=== PATIENT | male | born 2000 | race Caucasian/White ===

== ENCOUNTER 2024-03-14 12:05 | Outpatient (AMB) | payer OTHER, SELFPAY ==
--- NOTE | 2024-03-14 12:07 | MHC.PC.OV ---
Vital Signs 03/14/24 12:14 Height 6 ft 2.8 in Weight 195 lb 8 oz BMI 24.6 BP 126/62 Blood Pressure Location Rt brachial Position Sitting Respiration 14 Pulse 80 Pulse Source Pulse Oximeter Temp 98.4 F Temp Source Oral Pulse Oximetry (%) 98 Oxygen Delivery Method Room Air Intake Visit Reasons: back pain/ CPE Intake Note: New patient visit. Was taking Adderall in school, but is not currently in school. Allergies diphenhydramine [From Benadryl] Allergy (Severe, Verified 03/14/24 12:09) throat closes Penicillins Allergy (Unknown, Verified 03/14/24 12:09) Unknown Tobacco use date assessed: 03/14/24 Dental Screening Dental Screen Date: 03/14/24 Did you have a dental visit in the last 12 months?: No Did you have a dental problem in the last 6 months where you did not have access to dental care?: No Was dental information given to patient?: Patient has dentist HPI HPI Comments History of Present Illness Details This is a 23-year-old male with a past medical history of asthma, allergic rhinitis, anxiety and ADHD presenting to establish care. 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 The patient is scheduled today for back pain. He says this is chronic. It has been going on intermittently for a year so. It has gotten worse over the last few months. He went to the [facility] ED in the summer because he was having severe back pain that radiated down his left leg. They said it might be sciatica. He was given some medications. He is unsure they helped. He lifts weights, but he says that he has good form. He does not believe he has ever injured himself weight lifting. 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 Pain hurts more when he is seated. It also hurts when he tries to stand up after being seated for a while. Pain is there most days. It is described as aching. It is across all of his lower back and sometimes is higher up in his middle back. There is no numbness, tingling, weakness or loss of bowel or bladder control associated with the pain. Tylenol and Advil were ineffective. Naproxen helps but does not get rid of pain. He receives allergy injections at [facility]. They see him for asthma. He takes Symbicort and uses Albuterol as needed. He was seeing a therapist and pyschiastrist through school, but he is not sure when he will return. He may go back next semester. He was diagnosed with ADHD in childhood. Per Fang Call was filling this over the Summer, but now the patient is out of the medication. He was taking 15 mg TID, but he wants to try decreasing the dose. Anxiety is treated with buspirone 5 mg twice daily. Insomnia is treated with mirtazapine 7.5 mg nightly. ROS: Constitutional: No unexplained weight loss, fever, chills, fatigue or night sweats. Neurologic: No headache, dizziness, syncope, unilateral weakness, ataxia, numbness or tingling in the extremities. Musculoskeletal: see HPI Psychiatric: No SI/HI. Physical exam: Constitutional: Alert, in no distress Respiratory: Clear to auscultation. Cardiovascular: S1 S2 regular. No murmurs. Neurologic: No focal neurological deficits. Symmetric patellar reflexes. Moves all extremities spontaneously. Sensation intact bilaterally. Back: No midline tenderness. Mild lower back pain with flexion and extension. The lower thoracic and lumbar paraspinal muscles are mildly tender. Negative straight leg raises bilaterally. Lower extremity strength 5/5 bilaterally. Normal gait. Extremities: Warm and well perfused. No clubbing, cyanosis or edema. 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 How often do you have a drink containing alcohol?: Monthly or less 2. How many drinks containing alcohol do you have on a typical day when you are drinking?: 1 or 2 3. How often do you have six or more drinks on one occasion?: Never Total Score: 1 Physical exam (Primary Care) Vital Signs: Last Vital Signs Temp 98.4 F 03/14/24 12:14 Pulse 80 03/14/24 12:14 Resp 14 03/14/24 12:14 BP 126/62 03/14/24 12:14 Pulse Ox 98 03/14/24 12:14 Oxygen Delivery Method Room Air 03/14/24 12:14 BMI result Body Mass Index 24.6 Tobacco/Smoking Status: Tobacco use Status Tobacco use date assessed 03/14/24 03/14/24 12:19 Patient Tobacco Use Status Never used Tobacco 03/14/24 12:19 e-Cigarette/Vaping Use Never Used 03/14/24 12:19 Assessment and Plan Assessment & Plan (1) ADHD (attention deficit hyperactivity disorder): Code(s): F90.9 - Attention-deficit hyperactivity disorder, unspecified type Qualifiers: Attention deficit-hyperactivity disorder type: unspecified Qualified Code(s): F90.9 - Attention-deficit hyperactivity disorder, unspecified type Plan: Reviewed mass pat. It is appropriate. He can decrease Adderall to 10 mg 3 times daily. Side effects reviewed. I referred him to Psychiatry, but I told him that I do not mind continuing this medication for him and referring back to Psychiatry if adjustments are needed. If he plans to continue receiving the medication from me he will sign a controlled substance contract and have a urine drug screen completed at his next appointment. (2) Back pain: Code(s): M54.9 - Dorsalgia, unspecified Qualifiers: Back pain location: low back pain Chronicity: chronic Back pain laterality: bilateral Sciatica presence: without sciatica Qualified Code(s): M54.50 - Low back pain, unspecified; G89.29 - Other chronic pain Plan: No neurologic red flags. X-rays ordered for further evaluation. We will consider referral to physical therapy based on results. He can take naproxen as needed for pain which has been more effective than Tylenol or Advil. (3) Anxiety: Code(s): F41.9 - Anxiety disorder, unspecified Plan: Stable. Continue buspirone 5 mg twice daily. Referred to therapy. (4) Moderate persistent asthma: Code(s): J45.40 - Moderate persistent asthma, uncomplicated Qualifiers: Asthma complication type: uncomplicated Qualified Code(s): J45.40 - Moderate persistent asthma, uncomplicated Plan: Continue current regimen per asthma specialist. (5) Insomnia: Code(s): G47.00 - Insomnia, unspecified Qualifiers: Insomnia type: primary Qualified Code(s): F51.01 - Primary insomnia Plan: Continue mirtazapine 7.5 mg nightly as needed. Plan Follow up in 8 weeks for a physical exam. Orders: Orders XR thoracic spine 2V Today M54.9 - Dorsalgia, unspecified XR lumbar spine 2-3V Today M54.9 - Dorsalgia, unspecified Referrals Psychiatry Referral F41.9 - Anxiety disorder, unspecified, F90.9 - Attention-deficit hyperactivity disorder, unspecified type Psychology Referral F41.9 - Anxiety disorder, unspecified, F90.9 - Attention-deficit hyperactivity disorder, unspecified type Medications: New mirtazapine 7.5 mg PO BEDTIME 90 tabs 0RF buspirone 5 mg PO BID 180 tabs 0RF dextroamphetamine-amphetamine 10 mg (Adderall) administer doses at least 4-6 hours apart; Partial Fill upon patient request. 10 mg PO TID 30 days 90 tabs 0RF Coding Level of Care Code New Pt Level 4 (41224) Complex EM visit Add On G2211 Diagnoses Attention deficit hyperactivity disorder (ADHD), unspecified ADHD type F90.9 Attention deficit-hyperactivity disorder type: unspecified Chronic bilateral low back pain without sciatica M54.50; G89.29 Back pain location: low back pain Chronicity: chronic Back pain laterality: bilateral Sciatica presence: without sciatica Anxiety F41.9 Moderate persistent asthma without complication J45.40 Asthma complication type: uncomplicated Primary insomnia F51.01 Insomnia type: primary
[2024-03-14 12:14] VITALS: BP 126/62; PULSE 80; RESP 14; TEMP 36.9; O2SAT 98; BMI 24.6
== END 2024-03-14 12:53 | disposition home or self-care (01) ==
PROVIDERS: PCP Physician Assistant Medical; Visit Provider Physician Assistant Medical
DX: F90.9 Attention-deficit hyperactivity disorder, unspecified type (principal); M54.50 Low back pain, unspecified; G89.29 Other chronic pain; F41.9 Anxiety disorder, unspecified; J45.40 Moderate persistent asthma, uncomplicated; F51.01 Primary insomnia

== ENCOUNTER → 2024-03-14 12:05 | Outpatient (BNVA) | payer OTHER, SELFPAY | PROVIDERS: PCP Family Medicine; Visit Provider Physician Assistant Medical | DX: F90.9 Attention-deficit hyperactivity disorder, unspecified type (principal); G89.29 Other chronic pain; M54.50 Low back pain, unspecified; F41.9 Anxiety disorder, unspecified; J45.40 Moderate persistent asthma, uncomplicated; F51.01 Primary insomnia; Z79.899 Other long term (current) drug therapy | CPT/HCPCS: 99202 ==

== ENCOUNTER 2024-03-25 15:53 | Outpatient (REF) | payer OTHER, SELFPAY ==
--- NOTE | ~2024-03-25 | XR_ITS ---
EXAMINATION: XR THORACIC SPINE CLINICAL INFORMATION: M54.9 - Dorsalgia, unspecified COMPARISON: None available. TECHNIQUE: 3 views of the thoracic spine were obtained. FINDINGS: There is no fracture or bone destruction seen and the vertebral alignment is normal. There is no disc space narrowing. There is no abnormality of the paraspinal soft tissues. XR/XR thoracic spine 2V IMPRESSION: Normal exam. Electronically signed by: Nate Birmingham MD 05/20/2024 10:23 AM [facility] [employer]
--- NOTE | ~2024-03-25 | XR_ITS ---
EXAMINATION: XR LUMBOSACRAL SPINE CLINICAL INFORMATION: M54.9 - Dorsalgia, unspecified COMPARISON: None available. TECHNIQUE: Three views of the lumbosacral spine. FINDINGS: Normal bone mineralization. Normal alignment and lordosis. No scoliosis. There has been a left hemilaminotomy L5-S1. No compression deformities. Mild disc space narrowing L5-S1. Disc spaces are otherwise well-preserved. Minimal degenerative facet changes L5-S1. No additional bony or soft tissue abnormalities. XR/XR lumbar spine 2-3V IMPRESSION: 1. No acute findings lumbar spine. 2. Early degenerative disc and facet changes L5-S1. 3. Apparent left hemilaminotomy L5-S1. Electronically signed by: Nate Birmingham MD 05/20/2024 10:31 AM [facility]
== END 2024-03-25 15:54 | disposition home or self-care (01) ==
LOC: HO.XRAY 15:53
PROVIDERS: PCP Physician Assistant Medical; Visit Provider Physician Assistant Medical
DX: M54.9 Dorsalgia, unspecified (principal)
CPT/HCPCS: 72070; 72100

== ENCOUNTER → 2024-03-25 15:57 | Outpatient (BNV) | payer OTHER, SELFPAY | PROVIDERS: PCP Physician Assistant Medical; Visit Provider Radiology Diagnostic Radiology | DX: M54.9 Dorsalgia, unspecified (principal) | CPT/HCPCS: 72070; 72100 ==

== ENCOUNTER 2024-05-16 16:25 | Outpatient (AMB) | payer OTHER, SELFPAY ==
--- NOTE | 2024-05-16 16:28 | A.OFFPC_ITS ---
Vital Signs 05/16/24 16:30 Height 6 ft 2.8 in Weight 197 lb 8 oz BMI 24.8 BP 124/62 Blood Pressure Location Rt brachial Position Sitting Pulse 85 Pulse Source Pulse Oximeter Pulse Oximetry (%) 99 Oxygen Delivery Method Room Air Intake Visit Reasons: annual physical Intake Note: Physical Block Trader Required: No Allergies diphenhydramine [From Benadryl] Allergy (Severe, Verified 05/16/24 16:30) throat closes Penicillins Allergy (Unknown, Verified 05/16/24 16:30) Unknown Tobacco use date assessed: 03/14/24 Dental Screening Dental Screen Date: 03/14/24 HPI HPI Comments History of Present Illness Details This is a 23-year-old male with a past medical history of asthma, allergic rhinitis, anxiety and ADHD presenting for follow up. His x-rays have not been read yet for back pain evaluation. He went to the [facility] ED in the summer because he was having severe back pain that radiated down his left leg. They said it might be sciatica. He was given some medications. He is unsure they helped. He lifts weights, but he says that he has good form. He does not believe he has ever injured himself weight lifting. 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 Pain hurts more when he is seated. It also hurts when he tries to stand up after being seated for a while. Pain is there most days. It is described as aching. It is across all of his lower back and sometimes is higher up in his middle back. There is no numbness, tingling, weakness or loss of bowel or bladder control associated with the pain. Tylenol and Advil were ineffective. Naproxen helps but does not get rid of pain. He receives allergy injections at [facility]. They see him for asthma. He takes Symbicort and uses Albuterol as needed. He was seeing a therapist and pyschiastrist through school, but he is not sure when he will return. He may go back next semester. He was diagnosed with ADHD in childhood. He decreased his dose of Adderall successfully to 10 mg 3 times daily. CSC sign today. He will have UDS done with lab work. He feels like mirtazapine does not always help him to fall asleep. Once asleep he is able to stay asleep. He tried trazodone in the past which caused side effects. Hydroxyzine was ineffective. He will increase his dose of mirtazapine to 15 mg and monitor for increased sedation and drowsiness and will not drive or operate heavy machinery if he has the side effects. Anxiety is treated with buspirone 5 mg twice daily. Patient's parents are within the past year. Patient says he is doing okay about this. Declines influenza vaccine. Tdap due and administered today. Declines screenings for STIs-declines that he is sexually active. ROS: Constitutional: No unexplained weight loss, fever, chills, fatigue or night sweats. Eyes: No vision changes, blurry vision, double vision, eye pain, eye redness, eye discharge. ENT: No hearing loss, sneezing, congestion, runny nose or sore throat. Respiratory: No shortness of breath, cough or sputum production. Cardiovascular: No chest pain, chest pressure or chest discomfort. No palpitations or pedal edema. Gastrointestinal: No anorexia, nausea, vomiting or diarrhea. No abdominal pain or blood in stool. Genitourinary: No dysuria, hematuria, urinary frequency. No testicular masses, swelling in the groin, no pain, no urethral discharge. Neurologic: No headache, dizziness, syncope, unilateral weakness, ataxia, numbness or tingling in the extremities. Musculoskeletal: see HPI Hematologic/Lymphatics: No bleeding or bruising. No painful lymph nodes. Skin: No rash or itching. Endocrine: No cold or heat intolerance. No polyuria or polydipsia. Psychiatric:No SI/HI. Physical exam: Constitutional: Alert, in no distress. Head: Normocephalic. Eyes: Pupils are equal, round and reactive to light. Extraocular muscles intact. Ear, Nose and Throat: Canals clear. TMs normal. Normal nasal mucosa. No nasal discharge. No oral lesions. Neck: Supple, Full range of motion. No lymphadenopathy. No palpable thyroid masses. Respiratory: Clear to auscultation. Cardiovascular: S1 S2 regular. No murmurs. Gastrointestinal: Abdomen soft, non-tender, non-distended. Normal bowel sounds. No palpable masses. Genitourinary: Deferred exam. Neurologic: No focal neurological deficits. Symmetric patellar reflexes. Moves all extremities spontaneously. Sensation intact bilaterally. Skin: No rashes or lesions. Musculoskeletal: No gross deformities. Extremities: Warm and well perfused. No clubbing, cyanosis or edema. 3+ peripheral pulses bilaterally. 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 1. Little interest or pleasure in doing things: several days 2. Feeling down, depressed, or hopeless: not at all 3. Trouble falling or staying asleep, or sleeping too much: nearly every day 4. Feeling tired or having little energy: several days 5. Poor appetite or overeating: not at all 6. Feeling bad about yourself - or that you are a failure or have let yourself or your family down: not at all 7. Trouble concentrating on things, such as reading the newspaper or watching television: not at all 8. Moving or speaking so slowly that other people could have noticed. Or the opposite - being so fidgety or restless that you have been moving around a lot more than usual: several days 9. Thoughts that you would be better off or of hurting yourself in some way: not at all Total score: 6 Depression Screening Interpretation: Positive Depression Screening Done: Yes Source: Developed by Drs. Daniel Olea, No Benoit, Blu Madden and colleagues, with an educational rachel from [employer]. Thrive Questionnaire I am a: Patient What is your living situation today?: I have a steady place to live Within the past 12 months, did the food you bought not last and you didn't have the money to get more?: Never true Within the past 12 months, did you worry whether your food would run out before you got money to buy more?: Never true Do you have trouble paying for medicines?: No Do you have trouble getting transportation to medical appointments?: No Do you have trouble paying your heating and electricity bill?: No Do you have trouble taking care of your child, family member or friend?: No Do you have trouble with day-to-day activities such as bathing, preparing meals, shopping, managing finances, etc.?: No Are you currently unemployed and looking for a job?: No Are you interested in more education?: No Please select the resources that you would like help with: None Currently or been in a relationship where the following occur: No concerns reported THRIVE Score: 0 AUDIT C Alcohol Use Questionnaire (AUDIT-C) 1. How often do you have a drink containing alcohol?: Monthly or less 2. How many drinks containing alcohol do you have on a typical day when you are drinking?: 1 or 2 3. How often do you have six or more drinks on one occasion?: Never Total Score: 1 MARIPOSA-7 AMB Questionnaire MARIPOSA-7 Feeling nervous, anxious, or on edge: 1 = Several days Not being able to stop or control worryin = Not at all Worrying too much about different things: 1 = Several days Trouble relaxin = Not at all Being so restless that it is hard to sit still: 0 = Not at all Becoming easily annoyed or irritable: 1 = Several days Feeling afraid as if something awful might happen: 0 = Not at all Total MARIPOSA-7 score (0-4 normal; 5-9 mild; 10-14 moderate; 15-21 severe): 3 Source: Developed by Drs. Daniel Olea, No Benoit, Blu Madden and colleagues, with an educational rachel from [employer]. Physical exam (Primary Care) Vital Signs: Last Vital Signs Pulse 85 05/16/24 16:30 BP 124/62 05/16/24 16:30 Pulse Ox 99 05/16/24 16:30 Oxygen Delivery Method Room Air 05/16/24 16:30 BMI result Body Mass Index 24.8 Tobacco/Smoking Status: Tobacco use Status Tobacco use date assessed 03/14/24 05/16/24 16:29 Patient Tobacco Use Status Never used Tobacco 05/16/24 16:29 e-Cigarette/Vaping Use Never Used 05/16/24 16:29 PHQ-9: PHQ-9 Score PHQ-9: Total score 6 05/16/24 17:01 Depression Screening Interpretation: Positive Currently or been in a relationship where the following occur: No concerns reported Immunizations Boostrix Tdap 2.5 Lf unit-8 mcg-5 Lf/0.5 mL intramuscular syringe Performing Provider: SURJIT Chavez Performing Location: [facility] Administered by: Gaye Raymundo RN on 05/16/24 17:01 Dose Route Admin Location Dispensed Lot Number Expiration Date [facility] Due Diligence Coordinator 0.5 mL IM Left Deltoid 0.5 mL [id number] 07/06/26 [id number] [employer] VIS Given Date VIS Provided VIS Publication Date 05/16/24 Single Vaccine 21 Eligibility Eligibility Date Funding Source Not [facility] Eligible 05/16/24 Private Coding Level of Care Code Est Pt Prev Care 18-39y(99209) Diagnoses Routine physical examination Z00.00 Assessment & Plan Assessment & Plan (1) Routine physical examination: Code(s): Z00.00 - Encounter for general adult medical examination without abnormal findings Category: Medical Plan Patient is seen today for a routine physical. As part of this visit we reviewed the following issues, which are considered and essential part of preventative h ealth in this age group: - Testicular cancer screening, which includes self exam teaching - Blood pressure screening - Cholesterol screening - Nutritional and exercise counseling - Counseling of injury prevention including fire prevention, smoke alarms and seat belt usage - Screening for depression - Prevention of and/or testing for infectious diseases - Education about skin cancer - Recommendations about immunizations - Recommendation of an eye exam - Screening for substance abuse - Genetic cancer risk screening Follow up in 6 months for a medication review. Orders: Orders TDaP Immunization Today Z23 - Encounter for immunization Complete Blood Count no Diff Today F90.9 - Attention-deficit hyperactivity disorder, unspecified type, Z00.00 - Encounter for general adult medical examination without abnormal findings, Z13.6 - Encounter for screening for ca rdiovascular disorders, Z51.81 - Encounter for therapeutic drug level monitoring Comprehensive Met. Panel Today F90.9 - Attention-deficit hyperactivity disorder, unspecified type, Z00.00 - Encounter for general adult medical examination without abnormal findings, Z13.6 - Encounter for screening for cardiovascular disorders, Z51.81 - Encounter for therapeutic drug level m onitoring Lipid Panel Today F90.9 - Attention-deficit hyperactivity disorder, unspecified type, Z00.00 - Encounter for general adult medical examination without abnormal findings, Z13.6 - Encounter for screening for cardiovascular disorders, Z51.81 - Encounter for therapeutic drug level monitoring Drug Screen Urine Today F90.9 - Attention-deficit hyperactivity disorder, unspecified type, Z00.00 - Encounter for general adult medical examination without abnormal findings, Z13.6 - Encounter for screening for cardiovascular disorders, Z51.81 - Encounter for therapeutic drug level monitoring Medications: Changed From albuterol sulfate 90 mcg/actuation inhalation To albuterol sulfate 90 mcg/actuation 2 puffs inhalation Q4-6H 8.5 grams 3RF From budesonide-formoterol 160-4.5 mcg/actuation (Symbicort) inhalation To budesonide-formoterol 160-4.5 mcg/actuation (Symbicort) 1 puff inhalation BID 10.2 grams 11RF Refilled dextroamphetamine-amphetamine 10 mg (Adderall) administer doses at least 4-6 hours apart; Partial Fill upon patient request. 10 mg PO TID 30 days 90 tabs 0RF
[2024-05-16 16:30] VITALS: BP 124/62; PULSE 85; O2SAT 99; BMI 24.8
== END 2024-05-16 17:01 | disposition home or self-care (01) ==
PROVIDERS: PCP Physician Assistant Medical; Visit Provider Physician Assistant Medical
DX: Z23 Encounter for immunization (principal); Z00.00 Encounter for general adult medical examination without abnormal findings

== ENCOUNTER → 2024-05-16 16:25 | Outpatient (BNVA) | payer OTHER, SELFPAY | PROVIDERS: PCP Physician Assistant Medical; Visit Provider Physician Assistant Medical | DX: Z00.00 Encounter for general adult medical examination without abnormal findings (principal); Z23 Encounter for immunization; F90.9 Attention-deficit hyperactivity disorder, unspecified type; Z79.899 Other long term (current) drug therapy | CPT/HCPCS: 90471; 90715; 96127; 99395 ==

== ENCOUNTER 2024-11-14 11:53 | Outpatient (AMB) | payer OTHER, SELFPAY ==
--- NOTE | 2024-11-14 12:03 | MHC.PC.OV ---
Vital Signs 11/14/24 12:08 Height 6 ft 3 in Weight 195 lb 4 oz BMI 24.4 BP 112/78 Blood Pressure Location Lt brachial Position Sitting Pulse 80 Pulse Source Pulse Oximeter Temp 97.9 F Temp Source Temporal Artery Scan Pulse Oximetry (%) 96 Intake Visit Reasons: med review Intake Note: Fred presents in the office for a medication review. Allergies diphenhydramine [From Benadryl] Allergy (Severe, Verified 11/14/24 12:06) throat closes Penicillins Allergy (Unknown, Verified 11/14/24 12:06) Unknown Tobacco use date assessed: 11/14/24 Dental Screening Dental Screen Date: 11/14/24 Did you have a dental visit in the last 12 months?: No Did you have a dental problem in the last 6 months where you did not have access to dental care?: No Was dental information given to patient?: Patient declined HPI HPI Comments History of Present Illness Details This is a 23-year-old male with a past medical history of asthma, allergic rhinitis, insomnia, anxiety and ADHD presenting for ADHD medication check. He receives allergy injections at [facility]. They see him for asthma. He takes Symbicort and uses Albuterol as needed. No interval ER visits, illnesses or hospitalizations. He was seeing a therapist and pyschiastrist through school previously, but he did not return to school. He was diagnosed with ADHD in childhood. He is taking Adderall 10 mg 3 times daily. He has a controlled substance agreement. He will have UDS done with lab work. Reminded patient today. He works till midnight. He takes mirtazapine for sleep and gets 7-8 hours of sleep. He usually goes to bed at 02:00. Weight is stable. Buspirone is controlling anxiety. Denies side effects. ROS: Constitutional: No unexplained weight loss, fever, chills, fatigue or night sweats. Respiratory: No shortness of breath, cough or sputum production. Cardiovascular: No chest pain, chest pressure or chest discomfort. No palpitations or pedal edema. Neurologic: No headache, dizziness, syncope Psychiatric:No SI/HI. Physical exam: Constitutional: Alert, in no distress. Head: Normocephalic. Respiratory: Clear to auscultation. Cardiovascular: S1 S2 regular. No murmurs. 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 1. Little interest or pleasure in doing things: not at all 2. Feeling down, depressed, or hopeless: several days 3. Trouble falling or staying asleep, or sleeping too much: several days 4. Feeling tired or having little energy: not at all 5. Poor appetite or overeating: not at all 6. Feeling bad about yourself - or that you are a failure or have let yourself or your family down: not at all 7. Trouble concentrating on things, such as reading the newspaper or watching television: not at all 8. Moving or speaking so slowly that other people could have noticed. Or the opposite - being so fidgety or restless that you have been moving around a lot more than usual: not at all 9. Thoughts that you would be better off or of hurting yourself in some way: not at all Total score: 2 Depression Screening Interpretation: Negative Depression Screening Done: Yes Source: Developed by Drs. Daniel Olea, No Benoit, Blu Madden and colleagues, with an educational rachel from [employer]. Thrive Questionnaire Date Thrive assessed: 05/16/24 I am a: Patient What is your living situation today?: I have a steady place to live Within the past 12 months, did the food you bought not last and you didn't have the money to get more?: Never true Within the past 12 months, did you worry whether your food would run out before you got money to buy more?: Never true Do you have trouble paying for medicines?: No Do you have trouble getting transportation to medical appointments?: No Do you have trouble paying your heating and electricity bill?: No Do you have trouble taking care of your child, family member or friend?: No Do you have trouble with day-to-day activities such as bathing, preparing meals, shopping, managing finances, etc.?: No Are you currently unemployed and looking for a job?: No Are you interested in more education?: No Please select the resources that you would like help with: None Currently or been in a relationship where the following occur: No concerns reported THRIVE Score: 0 AUDIT C Alcohol Use Questionnaire (AUDIT-C) 1. How often do you have a drink containing alcohol?: Monthly or less 2. How many drinks containing alcohol do you have on a typical day when you are drinking?: 1 or 2 3. How often do you have six or more drinks on one occasion?: Never Total Score: 1 MARIPOSA-7 AMB Questionnaire MARIPOSA-7 Feeling nervous, anxious, or on edge: 0 = Not at all Not being able to stop or control worryin = Not at all Worrying too much about different things: 1 = Several days Trouble relaxin = Not at all Being so restless that it is hard to sit still: 1 = Several days Becoming easily annoyed or irritable: 1 = Several days Feeling afraid as if something awful might happen: 0 = Not at all Total MARIPOSA-7 score (0-4 normal; 5-9 mild; 10-14 moderate; 15-21 severe): 3 Source: Developed by Drs. Daniel Olea, No Benoit, Blu Madden and colleagues, with an educational rachel from [employer]. Physical exam (Primary Care) Vital Signs: Last Vital Signs Temp 97.9 F 11/14/24 12:08 Pulse 80 11/14/24 12:08 BP 112/78 11/14/24 12:08 Pulse Ox 96 11/14/24 12:08 BMI result Body Mass Index 24.4 Tobacco/Smoking Status: Tobacco use Status Tobacco use date assessed 03/14/24 11/14/24 12:04 Patient Tobacco Use Status Never used Tobacco 11/14/24 12:08 e-Cigarette/Vaping Use Never Used 11/14/24 12:08 PHQ-9: PHQ-9 Score PHQ-9: Total score 2 11/14/24 12:04 Depression Screening Interpretation: Negative Thrive Assessment: Date of Thrive Assessment Date Thrive assessed 05/16/24 11/14/24 12:04 Currently or been in a relationship where the following occur: No concerns reported Coding Level of Care Code Est Pt Level 4 (68975) Complex EM visit Add On G2211 Diagnoses Moderate persistent asthma without complication J45.40 Asthma complication type: uncomplicated Attention deficit hyperactivity disorder (ADHD), unspecified ADHD type F90.9 Attention deficit-hyperactivity disorder type: unspecified Anxiety F41.9 Primary insomnia F51.01 Insomnia type: primary Assessment & Plan Assessment & Plan (1) Moderate persistent asthma: Code(s): J45.40 - Moderate persistent asthma, uncomplicated Category: Medical Qualifiers: Asthma complication type: uncomplicated Qualified Code(s): J45.40 - Moderate persistent asthma, uncomplicated Plan: Stable. Continue current regimen. Followed by Allergy and immunology. (2) ADHD (attention deficit hyperactivity disorder): Code(s): F90.9 - Attention-deficit hyperactivity disorder, unspecified type Category: Medical Qualifiers: Attention deficit-hyperactivity disorder type: unspecified Qualified Code(s): F90.9 - Attention-deficit hyperactivity disorder, unspecified type Plan: Stable on current medication. CSA on file. Reminded to have labs done including UDS. Continue Adderall 10 mg 3 times daily. (3) Anxiety: Code(s): F41.9 - Anxiety disorder, unspecified Category: Medical Plan: Stable on buspirone 5 mg twice daily. (4) Insomnia: Code(s): G47.00 - Insomnia, unspecified Category: Medical Qualifiers: Insomnia type: primary Qualified Code(s): F51.01 - Primary insomnia Plan Stable. Sleep hygiene reviewed. Continue mirtazapine 15 mg at bedtime.
[2024-11-14 12:08] VITALS: BP 112/78; PULSE 80; TEMP 36.6; O2SAT 96; BMI 24.4
--- OUTSIDE RECORDS SUMMARY | 2024-11-14 13:06 | XMS_ITS | Encounter Summary ---
Author Organization [facility] Address [address] [place], [place] [id number] Phone Care Team Providers Care Preschool Assistant Name Role Phone Marivel Amaya MD Primary Care Provider [phone] Encounter Details Date Type Department Care Team (Late st Contact Info) Description 11/01/2017 Conversion [facility]counter [facility] [address] [address] [place] Alford MD [address] [place] [address] Social History Tobacco Use Types Packs/Day Years Used Date Smoking Tobacco: Never Assessed Sex and Gender Information Value Date Recorded Sex Assigned at Male 03/29/2021 3:05 PM EDT Legal Sex Male 6:18 PM EDT Gender Identity Male 03/29/2021 3:05 PM EDT Sexual Orientation Bisexual 03/29/2021 3: 05 PM EDT documented as of this encounter Plan of Treatment Not on file documented as of this encounter Visit Diagnoses Not on filedocumented in this encounter Care Teams Preschool Assistant Relationship Specialty Start Date End Date Marivel Amaya MD [address] [place] [address] PCP - General Pediatrics 10/15/22 07/25/24 documented as of this encounter
== END 2024-11-14 12:18 | disposition home or self-care (01) ==
PROVIDERS: PCP Physician Assistant Medical; Visit Provider Physician Assistant Medical
DX: J45.40 Moderate persistent asthma, uncomplicated (principal); F90.9 Attention-deficit hyperactivity disorder, unspecified type; F41.9 Anxiety disorder, unspecified; F51.01 Primary insomnia

== ENCOUNTER → 2024-11-14 11:53 | Outpatient (BNVA) | payer SELFPAY | PROVIDERS: PCP Physician Assistant Medical; Visit Provider Physician Assistant Medical | DX: J45.40 Moderate persistent asthma, uncomplicated (principal); F51.01 Primary insomnia; F90.9 Attention-deficit hyperactivity disorder, unspecified type; F41.9 Anxiety disorder, unspecified; Z79.899 Other long term (current) drug therapy; Z13.31 Encounter for screening for depression | CPT/HCPCS: 96127; 99212 ==

== ENCOUNTER 2025-05-22 16:21 | Outpatient (AMB) | payer OTHER, SELFPAY ==
--- NOTE | 2025-05-22 16:24 | A.OFFPC_ITS ---
Vital Signs 05/22/25 16:29 Height 6 ft 3 in Weight 195 lb BMI 24.4 BP 114/78 Blood Pressure Location Rt brachial Position Sitting Respiration 15 Pulse 89 Pulse Source Pulse Oximeter Temp 98 F Temp Source Temporal Artery Scan Pulse Oximetry (%) 97 Oxygen Delivery Method Room Air Intake Visit Reasons: annual physical exam Intake Note: Patient presents in the office today to establish care. Automatic Fancy Machine Operator Required: No Allergies diphenhydramine (From Benadryl) Allergy (Severe, Verified 05/22/25 16:28) throat closes Penicillins Allergy (Unknown, Verified 05/22/25 16:28) Unknown Tobacco use date assessed: 05/22/25 Dental Screening Dental Screen Date: 05/22/25 Did you have a dental visit in the last 12 months?: No Did you have a dental problem in the last 6 months where you did not have access to dental care?: No Was dental information given to patient?: Patient has dentist HPI HPI Comments History of Present Illness Details This is a 23-year-old male with a past medical history of asthma, allergic rhinitis, insomnia, anxiety and ADHD presenting for a physical exam. Endorses a mild sore throat x1 day. It was worse this morning. He was exposed to strep throat within the past week. Denies fevers or chills. He has mild nasal congestion. He receives allergy injections at [facility]. They see him for asthma. He takes Symbicort and uses Albuterol as needed. No interval ER visits, illnesses or hospitalizations. He was seeing a therapist and pyschiastrist through school previously, but he did not return to school. He was diagnosed with ADHD in childhood. He is taking Adderall 10 mg 3 times daily. He has a controlled substance agreement. He takes mirtazapine for sleep. He is also on buspirone 5 mg twice daily for anxiety. He would like to decrease Adderall to 5 mg 3 times a day. He has been cutting his pills in half. ROS: Constitutional: No unexplained weight loss, fever, chills, fatigue or night sweats. Eyes: No vision changes, blurry vision, double vision, eye pain, eye redness, eye discharge. ENT: No ear pain, sinus pain, see HPI Respiratory: No shortness of breath, cough or sputum production. Cardiovascular: No chest pain, chest pressure or chest discomfort. No palpitations or pedal edema. Gastrointestinal: No anorexia, nausea, vomiting or diarrhea. No abdominal pain or blood in stool. Genitourinary: No dysuria, hematuria, urinary frequency. Denies testicular masses, groin swelling or pain. Neurologic: No headache, dizziness, syncope, unilateral weakness, ataxia, numbness or tingling in the extremities. Musculoskeletal: No joint swelling or muscle aches Hematologic/Lymphatics: No bleeding or bruising. No painful lymph nodes. Skin: No rash Endocrine: No cold or heat intolerance. No polyuria or polydipsia. Psychiatric: See HPI Physical exam: Constitutional: Alert, in no distress. Eyes: Pupils are equal, round and reactive to light. Extraocular muscles intact. Ear, Nose and Throat: Canals clear. TMs normal. Normal nasal mucosa. No nasal discharge. No tonsillar hypertrophy, exudates or erythema. Mild cobblestoning. Neck: Supple, Full range of motion. No lymphadenopathy. No palpable thyroid masses. Respiratory: Clear to auscultation. Cardiovascular: S1 S2 regular. No murmurs. Gastrointestinal: Abdomen soft, non-tender, non-distended. Normal bowel sounds. No palpable masses. Genitourinary: Patient deferred. Neurologic: No focal neurological deficits. Symmetric patellar reflexes. Moves all extremities spontaneously. Sensation intact bilaterally. Skin: No rashes Musculoskeletal: No gross deformities. Normal range of motion. Extremities: Warm and well perfused. No clubbing, cyanosis or edema. Psychiatric: Normal mood and affect [facility] Medical History (Updated 05/22/25 @ 16:46 by SURJIT Chavez) Screening for cardiovascular condition Sore throat Insomnia Moderate persistent asthma Allergic rhinitis Back pain ADHD (attention deficit hyperactivity disorder) Anxiety Routine physical examination Social History (Updated 05/22/25 @ 16:29 by Yolande Mauricio CMA) Housing: House Housing Other:: Duplex Alcohol intake: current Patient Tobacco Use Status: Never used Tobacco e-Cigarette/Vaping Use: Never Used Second Hand Smoke Exposure: No service: No Current occupational status: employed 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 1. Little interest or pleasure in doing things: several days 2. Feeling down, depressed, or hopeless: not at all 3. Trouble falling or staying asleep, or sleeping too much: not at all 4. Feeling tired or having little energy: not at all 5. Poor appetite or overeating: several days 6. Feeling bad about yourself - or that you are a failure or have let yourself or your family down: several days 7. Trouble concentrating on things, such as reading the newspaper or watching television: several days 8. Moving or speaking so slowly that other people could have noticed. Or the opposite - being so fidgety or restless that you have been moving around a lot more than usual: not at all 9. Thoughts that you would be better off or of hurting yourself in some way: not at all Total score: 4 Depression Screening Interpretation: Positive Depression Screening Follow-up: Existing condition and In treatment Depression Screening Done: Yes Source: Developed by Drs. Daniel Olea, No Benoit, Blu Madden and colleagues, with an educational rachel from [email or web address]. Thrive Questionnaire Date Thrive assessed: 05/22/25 I am a: Patient What is your living situation today?: I have a steady place to live Within the past 12 months, did the food you bought not last and you didn't have the money to get more?: Never true Within the past 12 months, did you worry whether your food would run out before you got money to buy more?: Never true Do you have trouble paying for medicines?: No Do you have trouble getting transportation to medical appointments?: No Do you have trouble paying your heating and electricity bill?: No Do you have trouble taking care of your child, family member or friend?: No Do you have trouble with day-to-day activities such as bathing, preparing meals, shopping, managing finances, etc.?: No Are you currently unemployed and looking for a job?: No Are you interested in more education?: No Please select the resources that you would like help with: None Currently or been in a relationship where the following occur: No concerns reported THRIVE Score: 0 AUDIT C Alcohol Use Questionnaire (AUDIT-C) 1. How often do you have a drink containing alcohol?: Monthly or less 2. How many drinks containing alcohol do you have on a typical day when you are drinking?: 1 or 2 3. How often do you have six or more drinks on one occasion?: Never Total Score: 1 MARIPOSA-7 AMB Questionnaire MARIPOSA-7 Date MARIPOSA - 7 assessed: 05/22/25 Feeling nervous, anxious, or on edge: 1 = Several days Not being able to stop or control worryin = Not at all Worrying too much about different things: 1 = Several days Trouble relaxin = Not at all Being so restless that it is hard to sit still: 0 = Not at all Becoming easily annoyed or irritable: 0 = Not at all Feeling afraid as if something awful might happen: 0 = Not at all Total MARIPOSA-7 score (0-4 normal; 5-9 mild; 10-14 moderate; 15-21 severe): 2 Source: Developed by Drs. Daniel Olea, No Benoit, Blu Madden and colleagues, with an educational rachel from [email or web address]. MARIPOSA-7 Assessment Billing MARIPOSA-7 Assessment Tool: MARIPOSA-7 Assessment 95252 Physical exam (Primary Care) Vital Signs: Last Vital Signs Temp 98 F 05/22/25 16:29 Pulse 89 05/22/25 16:29 Resp 15 05/22/25 16:29 BP 114/78 05/22/25 16:29 Pulse Ox 97 05/22/25 16:29 Oxygen Delivery Method Room Air 05/22/25 16:29 BMI result Body Mass Index 24.4 Tobacco/Smoking Status: Tobacco use Status Tobacco use date assessed 05/22/25 05/22/25 16:32 Patient Tobacco Use Status Never used Tobacco 05/22/25 16:29 e-Cigarette/Vaping Use Never Used 05/22/25 16:29 PHQ-9: PHQ-9 Score PHQ-9: Total score 3 05/22/25 17:02 Depression Screening Interpretation: Positive Depression Screening Follow-up: Existing condition and In treatment Thrive Assessment: Date of Thrive Assessment Date Thrive assessed 05/22/25 05/22/25 16:47 Currently or been in a relationship where the following occur: No concerns reported Results AMB Rapid Strep AMB Rapid Strep Negative Last Edit by Yolande Mauricio CMA on 05/22/25 16:54 Results Reviewed Results Reviewed: Laboratory Last Values Strep Scn Rapid Clinic Negative 05/22/25 16:52 Coding Level of Care Code Est Pt Prev Care 18-39y(76609) Complex visit Add On G2211 Diagnoses Routine physical examination Z00.00 Sore throat J02.9 Additional Codes MARIPOSA-7 Assessment Billing - MARIPOSA-7 Assessment Tool: MARIPOSA-7 Assessment 51412 ([id number]) Assessment & Plan Assessment & Plan (1) Routine physical examination: Code(s): Z00.00 - Encounter for general adult medical examination without abnormal findings Category: Medical Plan: Patient is seen today for a routine physical. As part of this visit we reviewed the following issues, which are considered and essential part of preventative health in this age group: - Blood pressure screening - Cholesterol screening - Nutritional and exercise counseling - Counseling of injury prevention including fire prevention, smoke alarms and seat belt usage - Screening for depression - Prevention of and/or testing for infectious diseases-agreeable to testing including HIV screening - Education about skin cancer - Recommendations about immunizations - Recommendation of an eye exam - Screening for substance abuse (2) Sore throat: Code(s): J02.9 - Acute pharyngitis, unspecified Category: Medical Plan: Rapid strep negative. Throat culture sent to lab. Possible viral or allergy mediated symptoms. Supportive care reviewed. Follow up for worsening symptoms. Plan Follow up in 6 months for a med review. Orders: Orders AMB Rapid Strep Screen 05/22/25 J02.9 - Acute pharyngitis, unspecified, Z13.9 - Encounter for screening, unspecified Throat Culture 05/22/25 J02.9 - Acute pharyngitis, unspecified Comprehensive Met. Panel 05/22/25 F51.01 - Primary insomnia, J45.40 - Moderate persistent asthma, uncomplicated, Z00.00 - Encounter for general adult medical examination without abnormal findings, Z13.6 - Encounter for screening for cardiovascular disorders Lipid Panel 05/22/25 F51.01 - Primary insomnia, J45.40 - Moderate persistent asthma, uncomplicated, Z00.00 - Encounter for general adult medical examination without abnormal findings, Z13.6 - Encounter for screening for cardiovascular disorders Complete Blood Count no Diff 05/22/25 F51.01 - Primary insomnia, J45.40 - Moderate persistent asthma, uncomplicated, Z00.00 - Encounter for general adult medical examination without abnormal findings, Z13.6 - Encounter for screening for cardiovascular disorders CT NG by PCR Urine 12/25 F51.01 - Primary insomnia, J45.40 - Moderate persistent asthma, uncomplicated, Z00.00 - Encounter for general adult medical examination without abnormal findings, Z13.6 - Encounter for screening for card iovascular disorders, Z20.2 - Contact with and (suspected) exposure to infections with a predominantly sexual mode of transmission Hepatitis C Antibody 05/22/25 F51.01 - Primary insomnia, J45.40 - Moderate persistent asthma, uncomplicated, Z00.00 - Encounter for general adult medical examination without abnormal findings, Z13.6 - Encounter for screening for cardiovascular disorders, Z20.2 - Contact with and (suspected) exposure to infections with a predominantly sexual mode of transmission HIV Ab/Ag 05/22/25 F51.01 - Primary insomnia, J45.40 - Moderate persistent asthma, uncomplicated, Z00.00 - Encounter for general adult medical examination without abnormal findings, Z13.6 - Encounter for screening for cardiovascular disorders, Z20.2 - Contact with and (suspected) exposure to infections with a predominantly sexual mode of transmission Syphilis Screen 05/22/25 F51.01 - Primary insomnia, J45.40 - Moderate p ersistent asthma, uncomplicated, Z00.00 - Encounter for general adult medical examination without abnormal findings, Z13.6 - Encounter for screening for cardiovascular disorders, Z20.2 - Contact with and (suspected) exposure to infections with a predominantly sexual mode of transmission Medications: Refilled budesonide-formoterol 160-4.5 mcg/actuation (Symbicort) 2 puffs inhalation BID 10.2 grams 11RF Discontinued dextroamphetamine-amphetamine 10 mg (Adderall) Discontinued Reason: Doctor's Order 10 mg PO TID 30 days 90 tabs 0RF
[2025-05-22 16:29] VITALS: BP 114/78; PULSE 89; RESP 15; TEMP 36.6; O2SAT 97; BMI 24.4
--- OUTSIDE RECORDS SUMMARY | 2025-05-23 01:51 | XMS_ITS | Encounter Summary ---
Author Organization [facility] Address [address] [place] [phone] Phone Care Team Providers Care Returned Goods Sorter Name Role Phone Marivel Amaya MD Primary Care Provider [phone] Encounter Details Date Type Department Care Team (Late st Contact Info) Description 07/31/2009 [place]ation [facility] [place] [address] [place] [address] Family Medicine, Physician [address] [place] [id number] Social History Tobacco Use Types Packs/Day Years [...] on filedocumented in this encounter Care Teams Returned Goods Sorter Relationship Specialty Start Date End Date Marivel Amaya MD [address] [place] [address] PCP - General Pediatrics 10/15/22 07/25/24 documented as of this encounter
--- OUTSIDE RECORDS SUMMARY | 2025-05-23 01:51 | XMS_ITS | Encounter Summary ---
Author Organization [facility] Address [address] [place] [phone] Phone Care Team Providers Care Signal Apprentice Name Role Phone Marivel Amaya MD Primary Care Provider [phone] Encounter Details Date Type Department Care Team (Late st Contact Info) Description 08/02/2009 Document[place] [facility] [place] [address] [place] [address] Family Medicine, Physician [address] [phone] Social History Tobacco Use Types Packs/Day Years [...] on filedocumented in this encounter Care Teams Signal Apprentice Relationship Specialty Start Date End Date Marivel Amaya MD [address] [place] [address] PCP - General Pediatrics 10/15/22 07/25/24 documented as of this encounter
--- OUTSIDE RECORDS SUMMARY | 2025-05-23 01:51 | XMS_ITS | Clinical Summary ---
Author Organization [facility] Address [address] [place] [address] Phone Care Team Providers Care Fur Cutter Name Role Phone Unavailable Primary Care Provider Unavailabl e Allergies Active Allergy Reactions Criticality Noted Date Comments Diphenhydramine Itching 03/10/2022 Throat Environmental Penicillin G Ceftriaxone Medications cetirizine 10 MG tablet Take 10 mg by mouth daily. Active Sodium Fluoride 5000 PPM 1.1 % paste APPLY PEA SIZED AMOUNT TO TOOTHBRUSH AND BRUSH TEETH AT NIGHT WITH TOOTHPASTE 2 Active albuterol HFA 108 (90 Base) MCG/ACT inhalerIndication s:Mild intermittent asthma without complication Inhale 2 puffs every 4 (four) hours as needed for wheezing or shortness of breath (also prior to vigorous exercise prn). 1 Units 2 Active cloNIDine 0.1 MG tabletIndications :Attention deficit disorder with hyperactivity Take 2-3 tabs at bedtime as needed for sleep. Can take one tab daily as needed for anxiety. 90 tablet 3 2 Active traZODone 50 MG tablet 2 Active amphetamine-dextr oamphetamine 10 MG tablet TAKE 1 TABLET BY MOUTH 2 TIMES PER DAY BEFORE BREAKFAST AND AT 2 PM 2 Active Symbicort 160-4.5 MCG/ACT inhalerIndication s:Mild persistent asthma without complication INHALE 2 PUFFS TWICE A DAY RINSE MOUTH WITH WATER AFTER USE, DO NOT SWALLOW 1 Units 2 3 Active Active Problems Problem Noted Date Diagnosed Date Influenza vaccine refused 12/11/2021 Assessment & Plan (05/02/2022 4:02 PM EST): He refused COVID booster and flu shot today as well as Men B (communtes from home though so lower risk for Men B). He does need a second dose of MCV vaccine however, and [employer] is giving him a hard time about this, but we don't have private stock of this. I wrote down Menactra/Menveo for him so he can obtain this at a pharmacy. Assessment & Plan (03/10/2022 11:58 AM EDT): Urged Menactra 2, COVID booster, and Flu vaccines today which he declined. Assessment & Plan (12/11/2021 11:55 AM EDT): Recommended flu shot which was declined. Also advised Menactra 2 which he likewise declined. He will bring in the date of his COVID booster. Sleep disorder 12/11/2021 Assessment & Plan (05/02/2022 4:02 PM EST): Clonidine helps and is being managed by med provider in school. Assessment & Plan (03/10/2022 12:01 PM EDT): 2-3 Clonidine tabs help him sleep well. Assessment & Plan (12/11/2021 12:02 PM EDT): Melatonin did not help. Clonidine 0.3 mg does not help either. Do not recommend a higher dose. Recommend not using phone/ipad/computer at bedtime, keep them in another room. Discussed that the blue light can keep brain turned on . Try this for one week. Try listening to music instead. I don't think the trouble sleeping is related to the Concerta since it predated medication treatment, and it is well over 12 hours after taking it that he wants to go to bed. Try Benadryl. Headache 03/29/2021 Assessment & Plan (05/02/2022 3:59 PM EST): He describes headaches once a week or so, with light sensitivity and relief with sleep. No aura. Denies vomiting. Possibly migraine. Discussed triggers (certain foods, stress, lack of sleep, etc). Drink extra water. Keep headache diary, can RTC to discuss further. Perhaps his allergies are a trigger and the headaches will improve once his allergies are better treated. Assessment & Plan (03/29/2021 3:14 PM EDT): Mild intermittent headaches. Recommended to keep headache diary to identify his triggers, not skip meals, drink enough fluids, get enough sleep. Potential food triggers discussed. Call for vomiting or if increasing in severity. Oppositional defiant disorder 01/24/2016 Attention deficit disorder with hyperactivity Assessment & Plan (05/02/2022 3:54 PM EST): Glad to hear he has a med provider at school now! On Adderall now. Will start counseling there too. Assessment & Plan (03/10/2022 12:04 PM EDT): He finds the Concerta 36 helps with his attention for school work but only takes it on school days since he thinks it makes him a bit more anxious. Can trial Clonidine 0.1 mg as needed during the day for this. He is going to start counseling via [facility] which is a great idea. He may find a med provider there too, since he has been having car trouble this will be more convenient for him. Assessment & Plan (12/11/2021 12:03 PM EDT): The 36 mg dose seems to be effective for work, driving, and interpersonal function. He will schedule a med check for after school starts up in the Fall. His weight is down and his BP is a bit up today, will follow this. Assessment & Plan (11/01/2021 11:58 AM EDT): He is tolerating low dose Concerta but the effectiveness seems to have waned for him. Will increase to 36 mg dose now. He has lost a few pounds, BMI healthy at the 75th% though. Discussed would not want to see him lose any more weight. He is sensible about making sure he gets a good breakfast and dinner, and tries to have a snack in the middle of the day. Will start Clonidine as needed for sleep, if one tab does not help to try 2 tabs. He shows me his phone jarek that shows he is getting 7.5 hours of sleep per night on average, despite having a delayed sleep phase due to his work schedule. D/c Melatonin. Recheck in a month. Assessment & Plan (03/29/2021 3:13 PM EDT): Not on medication, currently doing well in college. Moderate persistent asthma without complication 01/24/2016 Assessment & Plan (05/02/2022 3:56 PM EST): He saw Allergy and they are now managing his asthma. They started him on Symbicort, but it went to the wrong pharmacy and he asked me to resend it. He showed me the rx on his patient portal. He will f/u with Allergy since he will be starting allergy shots. Assessment & Plan (02/04/2022 5:54 PM EDT): Time to tweak management- needs Flovent BID and decrease albuterol use to PT exercising mainly. Assessment & Plan (12/11/2021 11:52 AM EDT): Feels like his asthma is acting up recently but did not have an inhaler. Call if needing this more than twice a week (might benefit from a preventer in that case) or if it does not help the symptoms. Assessment & Plan (03/29/2021 3:00 PM EDT): Triggered by exercise. Off preventers but has not need his Albuterol in quite some time. Allergic rhinitis 01/24/2016 Assessment & Plan (05/02/2022 3:57 PM EST): Allergy testing showed many environmental allergies, no food allergies. He has decided to start allergy shots. Has Zyrtec. Assessment & Plan (02/04/2022 5:55 PM EDT): Sending Adriana to the Case Supervisor for further testing and he is wanting immunotherapy. Conceded. Assessment & Plan (03/29/2021 3:12 PM EDT): He expressed an interest in having allergy testing to identify his triggers. Numbers given for Case Supervisor. Resolved Problems Problem Noted Date Diagnosed Date Resolved Date Environmental allergies 05/02/202204/15 Weight loss 12/11/2021 05/02/2022 Assessment & Plan (05/02/2022 4:03 PM EST): Weight has been stable. Assessment & Plan (03/10/2022 11:59 AM EDT): Weight stable now. Assessment & Plan (02/04/2022 5:52 PM EDT): Stable now. Eating well, the Concerta does do a number on him. Assessment & Plan (12/11/2021 12:02 PM EDT): Likely related to stimulant use. Will follow. BMI not in a concerning range. 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 Closed fracture of fifth met atarsal bone of right foot 02/13/2017 03/29/2021 Immunizations Immunization Administration Dates Next Due DTaP 11/09/2007, 4,05/09/2003,03/06,2002 HPV Vaccine 9 Valent 03/17/2018 HPV, Quadrivalent 03/13/2014,12/27/2013 Hep B, ped/adol 08/16/2003,2002,2002 Hib (PRP-T) 02/27/2004, 3,03/06/2003,12/29 IPV 11/09/2007, 4,03/06/2003,12/29 Influenza, injectable, triva lent, preservative free 04/09/2004 MMR 11/24/2003 MMRV 11/03/2006 Meningococcal Conj (Menactra) MCV4P 12/27/2013 Pneumococcal Conjugate 02/27/2004,2002,03/06/2003,12/29 Pneumococcal Polysaccharide 05/05/2005 Tdap 12/27/2013 Varicella 11/24/2003 Family History Relation Name Status Comments Father Alive allergies and a sthma age: 39 diagnosed with Asthma, unspecified Father's Sister Alive Maternal Grandfather Alive brain t umor diagnosed with MALIGNANT NEOPLASM NOS Maternal Grandmother Alive Heart P roblems diagnosed with HEART DISEASE NOS Mother Alive healthy age: 38 Other Alive Siblings: asthm a diagnosed with Asthma, unspecified Paternal Grandfather Alive CAD judith gnosed with HEART DISEASE NOS Paternal Grandmother Alive CAD /ND @55 yr diagnosed with HEART DISEASE NOS Social History Tobacco Use Types Packs/Day Years Used Date Smoking Tobacco: Never Assessed Hunger/Food Answer Date Recorded In the last 12 months, did y ou or your family ever eat less than you felt you should because there wasn't enough money for food? No 05/02/2022 Stable Housing Answer Date Recorded Are you worried that in the next 2 months you may not have stable housing? No 05/02/2022 Transportation Concerns Answer Date Rec orded In the last 12 months, have you or your family ever had to go without healthcare because you didn't have a way to get there? No 05/02/2022 Hazards in Home Answer Date Recorded Think about the place you li ve. Do you have problems with any of the following? Pests (mice or roaches), mold, no/not working smoke detectors, water leaks, no window guards. No 2021 Financing Utilities Answer Date Recorde d In the last 12 months, has t he electric, gas, oil, or water company threatened to shut off your services in your home? No 05/02/2022 Safety at Home Answer Date Recorded Are you or your family worried about feeling saf e in your home? No 05/02/2022 Outside Support Answer Date Recorded Do you feel that you need mo re support from other people or programs to help you care for yourself or your family? No 05/02/2022 Understanding Health Concerns Answer Da te Recorded Do you need help understandi ng your or your child's healthcare needs (diagnosis, medications, plan, etc.)? No 05/02/2022 Financing Health Concerns Answer Date R ecorded In the last 12 months, was t here a time when your child needed to see a doctor or get medications or supplies but could not because of cost? No 05/02/2022 Missing School or Work Answer Date Zaheer rded Did you or your child miss s chool or work because of a health problem that could have been avoided? No 05/02/2022 Sex and Gender Information Value Date Recorded Sex Assigned at Male 03/29/2021 3:05 PM EDT Legal Sex Male 6:18 PM EDT Gender Identity Male 03/29/2021 3:05 PM EDT Sexual Orientation Bisexual 03/29/2021 3: 05 PM EDT Last Filed Vital Signs Vital Sign Reading Time Taken Comments Blood Pressure 120/70 05/02/2022 2:52 PM EST Pulse 88 02/20/2015 12:00 AM EDT Temperature 36.3 C (97.3 F) 11/01/2021 11:34 AM EDT Respiratory Rate - - Oxygen Saturation 97% 02/20/2015 12:00 AM EDT Inhaled Oxygen Concentration - - Weight 85 kg (187 lb 8 oz) 05/02/2022 2:52 PM ES T Height 188 cm (6' 2 ) 05/02/2022 2:52 PM EST Body Mass Index 24.07 05/02/2022 2:52 PM EST Plan of Treatment Health Maintenance Due Date Last Done Comments Men B Vaccine (1 of 2 - Standard) 2018 DTaP,Tdap,and Td Vaccines (7 - Td or Tdap) 12/28/2023 12/27/2013, 11/09/2007, 02/27/2004, Additional history exists Influenza Vaccines (#1) 2025 04/09/2004 COVID-19 Vaccine ( season) 2025 05/19/2021, 10/30/2020, 10/09/2020 Hepatitis B Vaccines Completed 08/16/2003, 2002, 2002 HIB Vaccines Completed 02/27/2004, 04/16, 03/06/2003, Additional history exists Pneumococcal Vaccine Completed 05/05/2005, 02/27/2004, 05/09/2003, Additional history exists MMR Vaccines Completed 11/03/2006, 11/24/2003 Varicella Vaccines Completed 11/03/2006, 11/24/2003 IPV Vaccines Completed 11/09/2007, 0 08/2003, 03/06/2003, Additional history exists Meningococcal Vaccine Aged Out 12/27/2013 No lisa halley eligible based on patient's age to complete this topic HPV Vaccines Completed 03/17/2018, 02/14, 12/27/2013 Hepatitis A Vaccines Aged Out No long er eligible based on patient's age to complete this topic Insurance [facility] PUBLIC DIRECT
--- OUTSIDE RECORDS SUMMARY | 2025-05-23 01:51 | XMS_ITS | Encounter Summary ---
Author Organization [facility] Address [address] [place] [address] Phone Care Team Providers Care Residential Field Manager Name Role Phone Marivel Amaya MD Primary Care Provider [phone] Encounter Details Date Type Department Care Team (Late st Contact Info) Description 08/10/2009 Documentation [facility] [place] Family Medicine [address] [place] [address] Family Medicine, Physician [address] [place], [place] [phone] Social History Tobacco Use Types Packs/Day Years [...] on filedocumented in this encounter Care Teams Residential Field Manager Relationship Specialty Start Date End Date Marivel Amaya MD [address] [place] [address] PCP - General Pediatrics 10/15/22 07/25/24 documented as of this encounter
--- OUTSIDE RECORDS SUMMARY | 2025-05-23 01:51 | XMS_ITS | Encounter Summary ---
Author Organization [facility] Address [address] [place] [address] Phone Care Team Providers Care Patient Service Technician Pst Name Role Phone Marivel Amaya MD Primary Care Provider [phone] Encounter Details Date Type Department Care Team (Late st Contact Info) Description 06/18/2009 Documentation [facility] [place] Family Medicine [address] [place] [address] Family Medicine, Physician [address] [place], [place] [phone] Social History Tobacco Use Types Packs/Day Years [...] on filedocumented in this encounter Care Teams Patient Service Technician Pst Relationship Specialty Start Date End Date Marivel Amaya MD [address] [place] [address] PCP - General Pediatrics 10/15/22 07/25/24 documented as of this encounter
--- OUTSIDE RECORDS SUMMARY | 2025-05-23 01:51 | XMS_ITS | Encounter Summary ---
Author Organization [facility] Address [address] [place], [place] [id number] Phone Care Team Providers Care Agile Java Developer Name Role Phone Marivel Amaya MD Primary Care Provider [phone] Encounter Details Date Type Department Care Team (Late st Contact Info) Description 11/01/2017 [facility] [address] [address] Geneva Alford MD [address] [place] [address] Social History Tobacco Use Types Packs/Day Years [...] on filedocumented in this encounter Care Teams Agile Java Developer Relationship Specialty Start Date End Date Marivel Amaya MD [address] [place] [address] PCP - General Pediatrics 10/15/22 07/25/24 documented as of this encounter
--- OUTSIDE RECORDS SUMMARY | 2025-05-23 01:51 | XMS_ITS | Encounter Summary ---
Author Organization [facility] Address [address] [place] [address] Phone Care Team Providers Care Drier And Grinder Tender Name Role Phone Marivel Amaya MD Primary Care Provider [phone] Encounter Details Date Type Department Care Team (Late st Contact Info) Description 07/26/2009 Documentation [facility] [place] Family Medicine [address] [place] [address] Family Medicine, Physician [address], [place] [phone] Social History Tobacco Use Types Packs/Day Years [...] on filedocumented in this encounter Care Teams Drier And Grinder Tender Relationship Specialty Start Date End Date Marivel Amaya MD [address] [place] [address] PCP - General Pediatrics 10/15/22 07/25/24 documented as of this encounter
== END 2025-05-22 16:55 | disposition home or self-care (01) ==
LOC: HO.HMCFM 16:22
PROVIDERS: PCP Physician Assistant Medical; Visit Provider Physician Assistant Medical
DX: Z00.00 Encounter for general adult medical examination without abnormal findings (principal); J02.9 Acute pharyngitis, unspecified

== ENCOUNTER 2025-05-22 16:21 | Outpatient (REF) | payer OTHER, SELFPAY | END 2025-05-22 16:22 | disposition home or self-care (01) | LOC: HO.LNP 16:21 | PROVIDERS: PCP Physician Assistant Medical; Visit Provider Physician Assistant Medical | DX: Z00.00 Encounter for general adult medical examination without abnormal findings (principal); J02.9 Acute pharyngitis, unspecified; Z13.31 Encounter for screening for depression; Z13.39 Encounter for screening examination for other mental health and behavioral disorders; F51.01 Primary insomnia | CPT/HCPCS: 87070; 87880; 96127; 99395 ==

== ENCOUNTER 2025-05-30 11:15 | Outpatient (REF) | payer OTHER, SELFPAY ==
--- OUTSIDE RECORDS SUMMARY | 2025-05-30 14:50 | XMS_ITS | Encounter Summary ---
Author Organization [facility] Address [address] [place] [address] Phone Care Team Providers Care Management Consulting Name Role Phone Marivel Amaya MD Primary Care Provider [phone] Encounter Details Date Type Department Care Team (Late st Contact Info) Description 06/18/2009 [place] [facility] [place] [address] [place] [address] Family Medicine, Physician [address] [place] [phone] Social History Tobacco Use Types Packs/Day Years [...] on filedocumented in this encounter Care Teams Management Consulting Relationship Specialty Start Date End Date Marivel Amaya MD [address] [place] [address] PCP - General Pediatrics 10/15/22 07/25/24 documented as of this encounter
--- OUTSIDE RECORDS SUMMARY | 2025-05-30 14:50 | XMS_ITS | Encounter Summary ---
Author Organization [facility] Address [address] [place] [address] Phone Care Team Providers Care Account Resolution Analyst Name Role Phone Marivel Amaya MD Primary Care Provider [phone] Encounter Details Date Type Department Care Team (Late st Contact Info) Description 08/02/2009 Documentation [facility] [place] [address] [place] [address] Family Medicine, Physician [address] [place] [phone] Social History Tobacco Use Types Packs/Day Years [...] on filedocumented in this encounter Care Teams Account Resolution Analyst Relationship Specialty Start Date End Date Marivel Amaya MD [address] [place] [address] PCP - General Pediatrics 10/15/22 07/25/24 documented as of this encounter
--- OUTSIDE RECORDS SUMMARY | 2025-05-30 14:50 | XMS_ITS | Encounter Summary ---
Author Organization [facility] Address [address] [place] [address] Phone Care Team Providers Care Stone Dresser Name Role Phone Marivel Amaya MD Primary Care Provider [phone] Encounter Details Date Type Department Care Team (Late st Contact Info) Description 07/26/2009 Documentation [facility] [place] [address] [place] [address] Family Medicine, Physician [address], [place] [phone] Social History Tobacco Use Types Packs/Day Years [...] on filedocumented in this encounter Care Teams Stone Dresser Relationship Specialty Start Date End Date Marivel Amaya MD [address] [place] [address] PCP - General Pediatrics 10/15/22 07/25/24 documented as of this encounter
--- OUTSIDE RECORDS SUMMARY | 2025-05-30 14:50 | XMS_ITS | Encounter Summary ---
Author Organization [facility] Address [address] [place] [address] Phone Care Team Providers Care Aligner Barrel And Receiver Name Role Phone Marivel Amyaa MD Primary Care Provider [phone] Encounter Details Date Type Department Care Team (Late st Contact Info) Description 08/10/[address] [facility] [place] Family Medicine [address] [place] [address] Family Medicine, Physician [address] [place] [phone] Social History Tobacco Use Types Packs/Day Years [...] on filedocumented in this encounter Care Teams Aligner Barrel And Receiver Relationship Specialty Start Date End Date Marivel Amaya MD [address] [place] [address] PCP - General Pediatrics 10/15/22 07/25/24 documented as of this encounter
--- OUTSIDE RECORDS SUMMARY | 2025-05-30 14:50 | XMS_ITS | Encounter Summary ---
Author Organization [facility] Address [address] [place], [place] [phone] Phone Care Team Providers Care Machinist/Machine Builder Name Role Phone Marivel Amaya MD Primary Care Provider [phone] Encounter Details Date Type Department Care Team (Late st Contact Info) Description 11/01/2017 [facility]counter [facility] [address] [address] [place] Alford MD [address] [place] [address] Social History Tobacco Use Types Packs/Day Years [...] on filedocumented in this encounter Care Teams Machinist/Machine Builder Relationship Specialty Start Date End Date Marivel Amaya MD [address] [place] [address] PCP - General Pediatrics 10/15/22 07/25/24 documented as of this encounter
--- OUTSIDE RECORDS SUMMARY | 2025-05-30 14:50 | XMS_ITS | Clinical Summary ---
Author Organization [facility] Address [address] [place] [address] Phone Care Team Providers Care Bench Molder Apprentice Name Role Phone Unavailable Primary Care Provider [...] second dose of MCV vaccine however, and [employer] is giving him a hard time about [...] 5:55 PM EDT): Sending Adriana to the Finish Photographer for further testing and he is wanting immunotherapy. Conceded. Assessment & Plan (03/29/2021 3:12 PM EDT): He expressed an interest in having allergy testing to identify his triggers. Numbers given for Finish Photographer. Resolved Problems Problem Noted Date Diagnosed Date [...] follow. BMI not in a concerning range. 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 Closed fracture of fifth met atarsal bone [...] HEART DISEASE NOS Paternal Grandmother Alive CAD /DC @55 yr diagnosed with HEART DISEASE NOS [...] patient's age to complete this topic Insurance [facility] PUBLIC DIRECT
--- OUTSIDE RECORDS SUMMARY | 2025-05-30 14:50 | XMS_ITS | Encounter Summary ---
Author Organization [facility] Address [address] [place] [address] Phone Care Team Providers Care Weighmaster Lead Name Role Phone Marivel Amaya MD Primary Care Provider [phone] Encounter Details Date Type Department Care Team (Late st Contact Info) Description 07/31/2009 Documentation [facility] [place] [address] [place] [address] Family Medicine, Physician [address], [place] [phone] Social History Tobacco Use Types Packs/Day Years [...] on filedocumented in this encounter Care Teams Weighmaster Lead Relationship Specialty Start Date End Date Marivel Amaya MD [address] [place] [address] PCP - General Pediatrics 10/15/22 07/25/24 documented as of this encounter
[2025-05-30 16:17] LABS: Hematocrit 49.1 % (42.0-52.0); Hemoglobin 16.0 g/dl (14.0-18.0); Mean Corpuscular HGB Conc 32.6 g/dl (31.0-36.0); Mean Corpuscular Hemoglobin 29.4 pg (27.0-33.0); Mean Corpuscular Volume 90.3 fL (80.0-98.0); NRBC Abs Auto 0.000 X10*3/uL (0.0-0.012); NRBC Pct Auto 0.0 /100WBC (0.0-0.2); Platelet Count 191 X10*3/uL (160-400); Red Blood Count 5.44 X10*6/uL (4.60-5.80); White Blood Count 4.5 X10*3/uL (4.8-10.8)
[2025-05-30 16:47] LABS: Alanine Aminotransferase 23 U/L (0-40); Albumin Level 4.5 g/dL (3.5-5.0); Alkaline Phosphatase 47 U/L (39-117); Anion Gap 10 (12-20); Aspartate Amino Transferase 30 U/L (5-37); Blood Urea Nitrogen 16 mg/dL (9-16); Calcium 9.0 mg/dL (8.4-10.2); Carbon Dioxide 27 mmol/L (22-29); Chloride 105 mmol/L (96-108); Cholesterol 140 mg/dL (<200); Estimated Glomerular Filt Rate > 60; HDL Cholesterol 42 mg/dL (>40); Potassium 4.2 mmol/L (3.3-5.1); Sodium 138 mmol/L (135-145); Total Protein 7.0 g/dL (6.5-8.0); Triglycerides 56 mg/dL (<150)
[2025-05-30 18:18] LABS: CT PCR Urine NOT DETECTED (Not Detect.); NG PCR Urine NOT DETECTED (Not Detect.)
[2025-05-31 04:46] LABS: Syphilis Screen Nonreactive (Nonreactive)
[2025-05-31 05:07] LABS: HIV Num 1 0.07 S/CO (0.00-0.99); ~HepC Num1 0.13 S/CO (0.00-0.79); ~Hepatitis C Antibody Nonreactive (Nonreactive)
== END 2025-05-30 11:16 | disposition home or self-care (01) ==
LOC: HO.WFDLDS 11:15
PROVIDERS: Visit Provider Physician Assistant Medical
DX: Z00.00 Encounter for general adult medical examination without abnormal findings (principal); F51.01 Primary insomnia; J45.40 Moderate persistent asthma, uncomplicated; Z13.6 Encounter for screening for cardiovascular disorders; Z20.2 Contact with and (suspected) exposure to infections with a predominantly sexual mode of transmission
CPT/HCPCS: 80053; 80061; 85027; 86780; 86803; 87389; 87491; 87591